=== PATIENT | female | born 1995 | race Caucasian/White ===

== ENCOUNTER 2016-06-20 07:03 | Day surgery (SDC) | payer OTHER ==
[2016-06-20] MEDS ORDERED: NS 1,000 ML IV ONE (07:07)
[2016-06-20] MEDS ORDERED: MIDAZOLAM 2 MG/2 ML VIAL IVP ONE (07:07)
--- NOTE | 2016-06-20 07:21 | CPEKG ---
Heart Rate: 78 RR Interval: 769 P-R Interval: 132 QRSD Interval: 92 QT Interval: 392 QTC Interval: 447 P [place]: 63 QRS [place]: 8 T Wave [place]: 65 EKG Severity - NORMAL ECG - EKG Impression: SINUS RHYTHM EKG Impression: SUBTLE SIGNS OF WPW Electronically Signed By: Kong Montenegro 20-Jun-2016 09:04:04
[2016-06-20 07:36] LABS: % IMMATURE GRANULYOCYTES 0.2 % (0.0-1.1); ABSOLUTE IMMATURE GRANULOCYTES 0.01 10^3/uL (0.00-0.10); ADD DIFF? NO; ADD MORPH? NO; ADD SCAN? NO; ATYPICAL LYMPHOCYTE FLAG 30 (0-99); FRAGMENT RBC FLAG 0 (0-99); HEMOGLOBIN 16.2 g/dL (12.6-16.3); LEFT SHIFT FLG 0 (0-99); LIPEMIA HEMOLYSIS FLAG 90 (0-99); MEAN CELL HEMOGLOBIN 32.5 pg (27.9-34.1); MEAN CELL HEMOGLOBIN CONCENTR. 34.5 g/dL (32.4-36.7); MEAN CELL VOLUME 94.4 fL (81.5-99.8); MEAN PLATELET VOLUME 9.7 fL (8.7-11.7); PLATELET CLUMPS FLAG 10 (0-99); PLATELET COUNT 241 10^3/uL (150-400); RED BLOOD CELL COUNT 4.98 10^6/uL (4.18-5.33); RED CELL DISTRIBUTION WIDTH 11.8 % (11.5-15.2)
[2016-06-20 07:51] LABS: ANION GAP 11 mEq/L (8-16); CALCIUM 9.3 mg/dL (8.5-10.4); CARBON DIOXIDE 25 mEq/l (22-31); CHLORIDE 104 mEq/L (97-110); CREATININE 0.7 mg/dL (0.6-1.0); GLOMERULAR FILTRATION RATE > 60; GLUCOSE 78 mg/dL (70-100); INR 1.02 (0.83-1.16); MAGNESIUM 1.9 mg/dL (1.6-2.3); POTASSIUM 4.1 mEq/L (3.5-5.2); PROTIME(PATIENT) 13.3 SEC (12.0-15.0); SODIUM 140 mEq/L (134-144)
[2016-06-20 07:59] LABS: APTT 28.4 SEC (23.0-38.0)
[2016-06-20] MEDS ORDERED: LIDOCAINE 1% 30 ML SDV ONE (08:47)
[2016-06-20] MEDS ORDERED: HEPARIN 10,000 UNIT/10 ML MDV ONE (08:48)
[2016-06-20] MEDS ORDERED: BUPIVACAINE 0.5% 30 ML SDV ONE (08:48)
[2016-06-20] MEDS ORDERED: ISOPROTERENOL HCL 0.2 MG/ML 5ML AMP ONE (08:48)
[2016-06-20] MEDS ORDERED: PROPOFOL 200 MG/20 ML VIAL ONE (08:58)
[2016-06-20] MEDS ORDERED: fentaNYL 100 MCG/2 ML INJ ONE ×2 (08:58→11:40)
[2016-06-20] MEDS ORDERED: MIDAZOLAM 2 MG/2 ML VIAL ONE (09:00)
[2016-06-20] MEDS ORDERED: METOCLOPRAMIDE 10 MG/2 ML VIAL ONE (09:02)
[2016-06-20] MEDS ORDERED: ONDANSETRON 4 MG/2 ML VIAL ONE (09:02)
[2016-06-20] MEDS ORDERED: ROCURONIUM 50 MG/5 ML VIAL ONE ×2 (09:02→10:30)
[2016-06-20] MEDS ORDERED: SEVOFLURANE 250 ML BOTTLE IH ONE (09:03)
[2016-06-20] MEDS ORDERED: SUGAMMADEX SODIUM 200 MG/2 ML VIAL IVP ONE (10:54)
[2016-06-20] MEDS ORDERED: IBUPROFEN 200 MG TAB PO PRN (12:41)
--- NOTE | 2016-06-22 00:38 | EPPROC ---
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 The right clavicular region, right groin, and left groin area were prepped and draped in the usual sterile manner. Anesthesiologist administered general anesthesia. Appropriate non-invasive blood pressure, pulse oximetry and end- tidal CO2 monitoring was established. All catheters were placed percutaneously using the modified Seldinger technique , and advanced into position under fluoroscopic guidance. One #6 English decapolar catheter was placed in the CS using RFV. One CRD2 catheter was placed in the His using RFV. One defelctable quadripolar catheter was placed in the RV using RFV. Programmed stimulation of the right atrium, right ventricle and coronary sinus ( left atrium) was performed. Parahisian pacing demonstrated two patterns of retrograde atrial activation during His bundle capture and loss of His bundle capture. This demonstrated the presence of an accessory pathway ( 4 oclock at the MV annulus as seen in the [place] view). No SVT was induced. Poor VA conduction was noted. Programmed stimulation from the RA, CS, right and RV during the baseline state and during infusion of isoproterenol 2 and 4 mcg/min confirmed that there was very poor conduction over the accessory pathway with pathway ErP of 480ms decreasing to 450ms with Isuprel. Pt was woken up and extubated and further evaluation proved that SVT was not inducible, VA conduction was poor and pathway ERP was 460ms.\ Dual pathway physiology was noted. The catheters were removed. The patient was transferred to the cardiovascular holding area in stable condition. Vascular access sheaths were removed in the holding area. There were no apparent complications. Results: * Spontaneous Intervals: Pre ablation SCL 890ms AH 60 ms HV 40 ms * * Accessory pathway function * A single AV accessory pathway was identified at the MV annulus at 4 oclock as seen in the [place] view. * The AV accessory pathway conducted in the antegrade direction only with ERP of 480ms which decreased to 450ms with Isuprel of 4mcg. * * Poor VA conduction was noted. * Dual AV tony physiology was noted * No SVT was induced. * CONCLUSIONS: * A single left posterior accessory pathway, which exhibited conduction in the antegrade conduction with ERP of 480ms * No SVT inducible. * Low risk for SCD. * No ablation attempted. * No apparent complications.
== END 2016-06-20 16:53 | disposition home or self-care (01) ==
LOC: FCATH 07:03
PROVIDERS: ATTEND Internal Medicine Cardiovascular Disease
PROC: 5A1223Z Performance of Cardiac Pacing, Continuous (ICD-10-PCS; principal; 2016-06-20)
PROC: 4A023FZ Measurement of Cardiac Rhythm, Percutaneous Approach (ICD-10-PCS; principal; 2016-06-20)
DX: I45.6 Pre-excitation syndrome (principal)
CPT/HCPCS: C1730; J1644; J2250; J2405; J2704; J2765; J3010